=== PATIENT | female | born 1990 | race Asian ===

== ENCOUNTER 2018-09-11 16:43 | Emergency (ER) | payer MEDICARE, OTHER ==
[~2018-09-11] VITALS: Ht 157.5 cm; Wt 70.0 kg
[~2018-09-11 16:43] MED LIST: DEPAKOTE PO; LORAZEPAM PO; METF100010 PO; RISP1TAB PO
[2018-09-11 17:01] VITALS: BP 125/78; PULSE 65; RESP 17; Ht 157.5 cm; Wt 70.0 kg
--- NOTE | 2018-09-11 18:03 | ERD ---
ER Documentation Chief Complaint Chief Complaint sent by pmd for low sodium 124 HPI 27-year-old female with a history of autism and psychiatric disorder on psychiatric medications sent by her doctor for low sodium on blood work done 2 days ago. Her sodium was 124 and her blood sugar was elevated as was her A1c. Mom states that the patient has been drinking more water, but she thought it was due to the heat. However she thinks it may also be due to the hyperglycemia. She is on 2 oral medications for her diabetes. She is otherwise acting her normal self with no vomiting or diarrhea. ROS All systems reviewed and are negative except as per history of present illness. Medications Home Meds Reported Medications Metformin Hcl* (Metformin Hcl*) 1,000 Mg Tablet, PO BID 11/25/12 [Lorazepam] 1 MG TAB No Conflict Check, PO BID 11/25/12 Risperidone (Risperdal) 1 Mg/Udtablet Tab.rapdis, PO BID 11/25/12 [Depakote] 500 MG TABLET. No Conflict Check, PO BID 11/25/12 Allergies Allergies: Coded Allergies: No Known Drug Allergies (Verified Allergy, 11/25/12) PMhx/Soc History of Surgery: No Hx Psychiatric Problems: Yes (AUTISM) Hx Miscellaneous Medical Probl: Yes (DM on oral meds) Hx Alcohol Use: No Hx Substance Use: No Hx Tobacco Use: No Smoking Status: Never smoker FmHx Family History: No coronary disease Physical Exam Vitals Vital Signs Date Temp Pulse Resp B/P (MAP) Pulse Ox O2 O2 Flow FiO2 Time Delivery Rate 09/11/18 98.1 65 17 125/78 99 17:01 (94) Physical Exam Const: No acute distress Head: Atraumatic Eyes: Normal Conjunctiva ENT: Normal External Ears, Nose and Mouth. Neck: Full range of motion. No meningismus. Resp: Clear to auscultation bilaterally Cardio: Regular rate and rhythm, no murmurs Abd: Soft, non tender, non distended. Normal bowel sounds Skin: No petechiae or rashes Back: No midline or flank tenderness Ext: No cyanosis, or edema Neur: Awake and alert Psych: Normal Mood and Affect Result Diagram: 09/11/18 1715 09/11/18 1715 Results 24 hrs Laboratory Tests Test 09/11/18 17:15 09/11/18 17:32 White Blood Count 8.0 10^3/ul Red Blood Count 4.35 10^6/ul Hemoglobin 12.4 g/dl Hematocrit 37.4 % Mean Corpuscular Volume 86.0 fl Mean Corpuscular Hemoglobin 28.5 pg Mean Corpuscular Hemoglobin Concent 33.2 g/dl Red Cell Distribution Width 12.7 % Platelet Count 171 10^3/UL Mean Platelet Volume 7.4 fl Immature Granulocytes % 0.800 % Neutrophils % 37.6 % Lymphocytes % 52.1 % Monocytes % 7.8 % Eosinophils % 0.9 % Basophils % 0.8 % Nucleated Red Blood Cells % 0.0 /100WBC Immature Granulocytes # 0.060 10^3/ul Neutrophils # 3.0 10^3/ul Lymphocytes # 4.2 10^3/ul Monocytes # 0.6 10^3/ul Eosinophils # 0.1 10^3/ul Basophils # 0.1 10^3/ul Nucleated Red Blood Cells # 0.0 10^3/ul Urine Color YELLOW Urine Clarity CLEAR Urine pH 6.0 Urine Specific [place] 1.019 Urine Ketones TRACE mg/dL Urine Nitrite NEGATIVE mg/dL Urine Bilirubin NEGATIVE mg/dL Urine Urobilinogen NEGATIVE mg/dL Urine Leukocyte Esterase NEGATIVE Evan/ul Urine Microscopic RBC 2 /HPF Urine Microscopic WBC 2 /HPF Urine Squamous Epithelial Cells FEW /HPF Urine Hemoglobin 1+ mg/dL Urine Glucose NEGATIVE mg/dL Urine Total Protein NEGATIVE mg/dl Sodium Level 133 mmol/L Potassium Level 4.5 mmol/L Chloride Level 95 mmol/L Carbon Dioxide Level 26 mmol/L Anion Gap 12 Blood Urea Nitrogen 12 mg/dl Creatinine 0.48 mg/dl Est Glomerular Filtrat Rate mL/min > 60 mL/min Glucose Level 196 mg/dl Calcium Level 9.5 mg/dl Bedside Glucose 215 mg/dL Procedures/MDM EMERGENT LABS AND DIAGNOSTIC STUDIES: Lab Results above were reviewed and interpreted by me. CBC: no anemia or evidence of infection BMP: Hyperglycemic. No e/o clinically significant electrolyte abnormality severe acidosis, alkalosis, renal failure, diabetic ketoacidosis UA: Trace ketones. No evidence of infection Initial Nursing notes reviewed. Previous Medical Records requested via the Electronic Health Record. EMERGENCY DEPARTMENT COURSE / MEDICAL DECISION MAKING: Patient presenting for blood work to check for hyponatremia. She was only mildly hyponatremic to 133 and labs were also notable for hyperglycemia. Discussed this with parents at bedside. They will need to follow-up with her PCP to address her uncontrolled diabetes. At this time, patient stable for discharge. Patient's blood pressure was elevated (>120/80) but appears stable without evidence of hypertensive emergency or urgency. The patient was counseled about the risks of hypertension and urged to pursue outpatient monitoring and therapy within a week with their primary care physician. Departure Diagnosis: Primary Impression: Encounter for laboratory test Additional Impression: Hyperglycemia Condition: Stable Patient Instructions: Hyperglycemia (High Blood Sugar) Referrals: DOCTOR,NOT ON STAFF (PCP) Additional Instructions: Call your primary care doctor TOMORROW for an appointment during the next 2-3 days.See the doctor sooner or return here if your condition worsens before your appointment time. PHILLIP WILSON MD Sep 11, 2018 18:03
== END 2018-09-11 18:13 | disposition home or self-care (01) ==
LOC: E/R 16:43
DX: E11.65 Type 2 diabetes mellitus with hyperglycemia (principal); F84.0 Autistic disorder; Z79.84 Long term (current) use of oral hypoglycemic drugs
CPT/HCPCS: 36415; 80048; 81001; 82962; 85025; 99283